=== PATIENT | male | born 1960 | race Two or more races ===

== ENCOUNTER 2023-02-08 12:45 | Emergency (ER) | payer MEDICAID, OTHER ==
[2023-02-08 12:45] VITALS: BP 0/0; PULSE 0; RESP 0; TEMP 95.6; O2SAT 0
== END 2023-02-08 12:56 ==
LOC: ER 12:45 → EDBD 12:47 → ER 12:56
DX: I46.9 Cardiac arrest, cause unspecified (principal); I12.9 Hypertensive chronic kidney disease with stage 1 through stage 4 chronic kidney disease, or unspecified chronic kidney disease; N18.9 Chronic kidney disease, unspecified
CPT/HCPCS: 92950